=== PATIENT | female | born 1950 | race Caucasian/White ===

== ENCOUNTER → 2023-07-17 13:52 | Outpatient (REF) | payer MEDICARE, OTHER, SELFPAY | LOC: PAVMRI 13:52 | PROVIDERS: ATTENDING PHYSICIAN Physician Assistant; FAMILY PHYSICIAN Nurse Practitioner Adult Health | DX: I67.1 Cerebral aneurysm, nonruptured (principal) | CPT/HCPCS: 70546; A9585 ==

== ENCOUNTER → 2023-08-29 10:26 | Outpatient (REF) | payer MEDICARE, OTHER, SELFPAY | LOC: HWRAD 10:26 | PROVIDERS: ATTENDING PHYSICIAN Psychiatry & Neurology Neurology; FAMILY PHYSICIAN Nurse Practitioner Adult Health | DX: M81.0 Age-related osteoporosis without current pathological fracture (principal); M19.90 Unspecified osteoarthritis, unspecified site | CPT/HCPCS: 73560; 73590; 77080 ==

== ENCOUNTER → 2024-07-06 11:18 | Outpatient (REF) | payer MEDICARE, OTHER, SELFPAY | LOC: HWRAD 11:18 | PROVIDERS: ATTENDING PHYSICIAN Internal Medicine | DX: M79.605 Pain in left leg (principal) | CPT/HCPCS: 73590 ==

== ENCOUNTER 2024-07-09 17:28 | Emergency (ER) | payer MEDICARE, OTHER, SELFPAY ==
[2024-07-09 18:14] VITALS: BP 155/89
[2024-07-09 18:55] LABS: % Basophils 0.8 % (0-2); % Eosinophils 0.8 % (0-6); % Immature Granulocytes 0.2 % (0-0.5); % Lymphocytes 30.6 % (20.5-51.1); % Neutrophils 59.6 % (42.2-75.2); Absolute Basophils 0.1 10^3/uL (0-0.2); Absolute Eosinophils 0.1 10^3/uL (0-0.7); Absolute Lymphocytes 2.8 10^3/uL (1.2-3.4); Absolute Monocytes 0.7 10^3/uL (0.1-0.6); Absolute Neutrophils 5.4 10^3/uL (1.4-6.5); Hematocrit 38.7 % (37.0-47.0); Hemoglobin 12.9 g/dL (12.0-16.0); Mean Corp Hgb Conc. 33.3 g/dL (33.0-37.0); Mean Corpuscular Hgb 31.3 pg (27.0-31.0); Mean Corpuscular Volume 93.9 fL (81.0-99.0); Mean Platelet Volume 9.5 fL (7.4-10.4); Nucleated Red Blood Cells % 0 %; Platelet Count 192 10^3/uL (130-400); Red Blood Cell Count 4.12 10^6/uL (4.20-5.40); Red Cell Dist. Width 12.9 % (11.5-14.5)
[2024-07-09 19:13] LABS: ALT (SGPT) 19 U/L (0-35); AST (SGOT) 18 U/L (14-36); Albumin 4.4 g/dl (3.5-5.0); Alkaline Phosphatase 107 U/L (38-126); Blood Urea Nitrogen 22 mg/dl (7-17); Calcium 9.7 mg/dl (8.4-10.2); Carbon Dioxide 25 mmol/L (22-30); Chloride 103 mmol/L (98-107); Glucose 111 mg/dl (70-99); Potassium 3.5 mmol/L (3.5-5.1); Sodium 137 mmol/L (135-145); Total Bilirubin 0.7 mg/dl (0.2-1.3); Total Protein 7.5 g/dl (6.3-8.2); eGFR > 60.00
--- NOTE | 2024-07-09 21:34 | ED.GENMED ---
History of Present Illness
General
Chief Complaint: Skin Problem
Source: patient and family (Son)
Exam Limitations: none
Time Seen by Provider: 07/09/24 21:19
History of Present Illness
History of Present Illness:
This is a 74 year old female that comes in with son with c/o left leg pain. Son states that about 1.5 weeks ago no Saturday she started to c/o pain in te left leg. States that she always has pain in the right side since her stroke. States that Saturday
she went to the PCP for a shot and she told them about her leg hurting. States that Dr Henry ordered an X-ray. States that today he called the PCP as they had not heard anything and he was told to bring her to the ER for an US. Denies any fever,
chills, chest pain, SOB, abd pain, nausea, vomiting, diarrhea, headache, dizziness, urinary burning.
Past History
Past History
ED Past Medical History: CVA (with stents X 3 and coiling), HTN, Hypercholesterolemia, Other (Anemia, paralysis right leg, Intracranial bleed, Sleep apnea uses CPAP, Renal calculus) and Other (RSD right side with chronic pain.)
ED Past Surgical History: Appendectomy, Tonsilectomy and Other (Tracheostomy, gastrostomy , right and left lumpectomy)
Social History
Tobacco: Non-smoker
Alcohol: None
Drug: None
Personal:
Living: with family (2 son abd lives with one son)
Employment: Retired
Family History
Family History: Negative Diabetes or CAD
Review of Systems
Review of Systems
All Other Systems: ROS reviewed and negative except as documented in HPI and ROS
Constitutional: Reports no symptoms; Denies fever or chills
EENT: Reports no symptoms
Respiratory: Reports no symptoms; Denies cough or trouble breathing
Cardiac: Reports no symptoms; Denies chest pain
ABD/GI: Reports no symptoms; Denies abdominal pain, nausea, vomiting or diarrhea
: Reports no symptoms; Denies dysuria, frequency or urgency
Musculoskeletal: Reports other (Left leg pain)
Skin: Reports no symptoms
Neurological: Reports no symptoms; Denies dizzy or headache
Psychiatric: Reports no symptoms
Phy Exam
General Physical Exam
General Presentation: well appearing and no apparent distress
General age: appears stated age
General Skin: warm and dry
General Habitus: elderly
General Mental: alert
General Hydration: appears well hydrated
ENT Exam
ENT Exam: TM's normal, pharynx normal and neck supple
Eye Exam
Eye Exam: EOMI
Cardiovascular Exam
Cardiovascular Exam: regular rate/rhythm, no edema and normal peripheral pulses
Pulmonary Exam
Pulmonary Exam: lungs clear, no respiratory distress, no rales, chest non tender, no crackles, no rhonchi, no wheezing and no cough
Musculoskeletal Exam
Musculoskeletal Exam: full ROM, no edema and other (Negative for any swelling or redness noted of the left leg)
Skin Exam
Skin Exam: normal color, warm/dry, no rash and no petechia
Psychiatric Exam
Psychiatric Exam: normal mood/affect
Course
Orders/Labs/Results
Orders:
Orders
07/09/24 18:25
Venous Doppler Lwr Ext Left [US Periph Venous LOWER Ext LT] Urgent
Comment:
Reason For Exam: pain and swelling
07/09/24 18:44
CMP [Comprehensive Metabolic Panel] Urgent
Complete Blood Count/With Diff Urgent
Abnormal Lab Results
07/09/24
18:44
RBC 4.12 L 10^6/uL
(4.20-5.40)
MCH 31.3 H pg
(27.0-31.0)
Absolute Monos (auto) 0.7 H 10^3/uL
(0.1-0.6)
BUN 22 H mg/dl
(7-17)
Glucose 111 H mg/dl
(70-99)
07/09/24 18:44
07/09/24 18:44
Dehydration. Glucose nonfasting.
Vital Signs
Initial and Last Documented VS:
Initial Vital Signs
Temp Pulse Resp BP Pulse Ox
98.1 F 80 18 155/89 98
07/09/24 18:14 07/09/24 18:14 07/09/24 18:14 07/09/24 18:14 07/09/24 18:14
Last Documented Vital Signs
Temp Pulse Resp BP Pulse Ox
98.1 F 80 18 155/89 98
07/09/24 18:14 07/09/24 18:14 07/09/24 18:14 07/09/24 18:14 07/09/24 18:14
MDM/Problems Addressed
Differential Diagnosis Includes:
DVT. Neuropathy,
MDM/Problems Addressed:
This is a 74 year old female that comes in with c/o left leg pain. States that this started about 1.5 weeks ago on a Saturday. Patient saw PCP on Saturday and had an X-ray. Today patient was called and told to come to the ER for an US.
Will check labs and get Ultrasound left leg.
Back into see patient. Explained that her Ultrasound is negative. Questioned patient if she has ever use Gabapentin. States that this does not work for her. Will have patient use Extra stength Tylenol or Tylenol arthritis as directed. Patient to
follow up with the family doctor. Return with any concerns.
Chronic conditions affecting care:
NA
Acute Exacerbation and/or Progression of Chronic Illness:
NA
*Radiology
Radiology exam reviewed: radiology read reviewed (US-NO evidence of deep venous thrombosis of the left lower extremity. )
*Pulse Oximetry
Patient hypoxic: no
*EKG
Interpreted by ED Provider?: NA
Rate: EKG- N/A
*Neonatal Nurse Practitioner Interpretation
Rate: Neonatal Nurse Practitioner- N/A
*Critical Care Note
Total Time (30-74mins, 75-104mins- exclusive of procedures): Not Applicable
ED Attending Note
-
Portions of this chart may have been created with voice recognition software.� Occasional wrong word or��sound alike� substitutions may have occurred due to the inherent limitations of voice recognition software.
Discharge Plan
Departure
Patient Disposition: Home (Routine Discharge)
Date of Disposition: 07/09/24
Time of Disposition: 22:18
Patient with high blood pressure during this ER visit?: Yes
Condition: Good
Covid-19: Not Applicable
Discharge Problem:
Left leg pain
Instructions: BLOOD PRESSURE
Prescriptions:
No Action
ascorbic acid (vitamin C) [Vitamin C] 500 MG tablet
125 mg PO Q48H
acetaminophen [Tylenol 8 Hour] 650 MG tablet extended release
2 tab PO PRN PRN (Reason: pain)
calcium carbonate 600 MG tablet
1,200 mg PO .Q48
zinc 50 MG tablet
50 mg PO .Q48
Chew Q 100 MG tablet,chewable
100 mg PO .Q48
[id number]-[id number]-ast [krill oil] 1 EACH capsule
1 cap PO [id number]
mag citrate-potassium citrate 1 EACH capsule
125 mg PO .Q48
Natures Truth B-12 Energy
2 tab PO .Q48
Vitamin E (Dl,Tocopheryl Acet) [Vitamin E] 180 MG Capsule
180 mg PO .Q48
atorvastatin 40 MG tablet
40 mg PO DAILY
amlodipine 5 MG tablet
5 mg PO DAILY
losartan 25 MG tablet
25 mg PO DAILY
cholecalciferol (vitamin D3) [Vitamin D3] 25 MCG capsule
25 mcg PO Q48H
folic acid 0.8 MG capsule
0.8 mg PO DAILY
Psyllium Husk [Psyllium Fiber] 0.4 GM Capsule
0.4 gm PO DAILY
Activity Restrictions/Additional Instructions:
As discussed, your blood work shows that you are a little Dehydrated. Please increase your water intake to 8-8oz glasses daily. Your Ultrasound is negative for any blood clots. Please use Tylenol 1000mg every 6 hours for pain or you may also try
Tylenol arthritis for pain. Follow up with the family doctor for recheck. IF YOU HAVE ANY OTHER CONCERNS PLEASE RETURN TO THE EMERGENCY ROOM
Interventions
Interventions:
*Risk Screen - Suicide Last Done: 07/09/24 21:22
*General Assessment Last Done: 07/09/24 21:22
*Neglect/Abuse Screening Last Done: 07/09/24 21:22
ED- Fall Risk Assessment Last Done: 07/09/24 21:22
*ED COVID-19 Vaccine History Last Done: 07/09/24 18:14
ED-Skin Assessment Last Done: 07/09/24 21:22
Discharge Date and Time
Print Language: TUVALUAN
[2024-07-09 22:39] VITALS: BP 148/76
== END 2024-07-09 22:47 | disposition home or self-care (01) ==
LOC: EMR 17:28
PROVIDERS: Physician Assistant; EMERGENCY PHYSICIAN Student in an Organized Health Care Education/Training Program; FAMILY PHYSICIAN Nurse Practitioner Adult Health
DX: M79.605 Pain in left leg (principal); I10 Essential (primary) hypertension; E78.00 Pure hypercholesterolemia, unspecified; E86.0 Dehydration; G47.30 Sleep apnea, unspecified; Z86.73 Personal history of transient ischemic attack (TIA), and cerebral infarction without residual deficits; Z87.442 Personal history of urinary calculi; Z90.49 Acquired absence of other specified parts of digestive tract
CPT/HCPCS: 99284; 80053; 85025; 93971

== ENCOUNTER → 2024-07-15 14:36 | Outpatient (REF) | payer MEDICARE, OTHER, SELFPAY | LOC: HWWDC 14:36 | PROVIDERS: ATTENDING PHYSICIAN Family Medicine Geriatric Medicine; FAMILY PHYSICIAN Nurse Practitioner Adult Health | DX: Z12.31 Encounter for screening mammogram for malignant neoplasm of breast (principal) | CPT/HCPCS: 77063; 77067 ==

== ENCOUNTER → 2024-10-14 11:30 | Outpatient (REF) | payer MEDICARE, OTHER, SELFPAY | LOC: HWRAD 11:30 | PROVIDERS: ATTENDING PHYSICIAN Specialist; FAMILY PHYSICIAN Nurse Practitioner Adult Health | DX: N20.0 Calculus of kidney (principal) | CPT/HCPCS: 74018; 76775 ==

== ENCOUNTER → 2024-11-24 10:36 | Outpatient (REF) | payer MEDICARE, OTHER, SELFPAY ==
[2024-11-24 15:39] LABS: ALT (SGPT) 18 U/L (0-35); AST (SGOT) 18 U/L (14-36); Albumin 4.3 g/dl (3.5-5.0); Alkaline Phosphatase 87 U/L (38-126); Blood Urea Nitrogen 15 mg/dl (7-17); Calcium 9.9 mg/dl (8.4-10.2); Carbon Dioxide 25 mmol/L (22-30); Chloride 110 mmol/L (98-107); Glucose 105 mg/dl (70-99); HDL Cholesterol 65 mg/dl; LDL Cholesterol, Calculated 64 mg/dl; Potassium 4.5 mmol/L (3.5-5.1); Sodium 141 mmol/L (135-145); Total Bilirubin 0.6 mg/dl (0.2-1.3); Total Cholesterol 153 mg/dl (50-199); Total Protein 7.6 g/dl (6.3-8.2); Triglyceride 122 mg/dl (10-149); Very Low Density Lipoprotein 24 mg/dl (0-30); eGFR > 60.00
[2024-11-24 15:41] LABS: % Basophils 0.8 % (0-2); % Immature Granulocytes 0.2 % (0-0.5); % Lymphocytes 33.2 % (20.5-51.1); % Monocytes 8.1 % (1.7-9.3); % Neutrophils 56.7 % (42.2-75.2); Absolute Basophils 0.1 10^3/uL (0-0.2); Absolute Eosinophils 0.1 10^3/uL (0-0.7); Absolute Monocytes 0.5 10^3/uL (0.1-0.6); Absolute Neutrophils 3.4 10^3/uL (1.4-6.5); Hematocrit 38.6 % (37.0-47.0); Hemoglobin 12.7 g/dL (12.0-16.0); Mean Corp Hgb Conc. 32.9 g/dL (33.0-37.0); Mean Corpuscular Hgb 30.8 pg (27.0-31.0); Mean Corpuscular Volume 93.5 fL (81.0-99.0); Mean Platelet Volume 10.6 fL (7.4-10.4); Nucleated Red Blood Cells % 0 %; Platelet Count 187 10^3/uL (130-400); Red Blood Cell Count 4.13 10^6/uL (4.20-5.40); Red Cell Dist. Width 12.9 % (11.5-14.5)
[2024-11-24 15:55] LABS: Vitamin D, 25-OH*** 59.6 ng/mL (30-80)
[2024-11-24 16:09] LABS: TSH Reflex To Free T4 0.97 uIU/ml (0.47-4.68)
[2024-11-25 09:52] LABS: Glycohemoglobin (HgbA1c) 5.8 % (4.0-5.6)
== END ==
LOC: HWLAB 10:36
PROVIDERS: ATTENDING PHYSICIAN Nurse Practitioner Adult Health
DX: I61.9 Nontraumatic intracerebral hemorrhage, unspecified (principal); E78.2 Mixed hyperlipidemia; R73.03 Prediabetes; M81.0 Age-related osteoporosis without current pathological fracture
CPT/HCPCS: 36415; 80053; 80061; 82306; 83036; 84443; 85025

== ENCOUNTER 2025-01-21 06:14 | Day surgery (SDC) | payer MEDICARE, OTHER, SELFPAY | END 2025-01-21 09:21 | disposition home or self-care (01) | LOC: GI 06:14 | PROVIDERS: ATTENDING PHYSICIAN Internal Medicine Gastroenterology; FAMILY PHYSICIAN Nurse Practitioner Adult Health | DX: Z12.11 Encounter for screening for malignant neoplasm of colon (principal); K57.30 Diverticulosis of large intestine without perforation or abscess without bleeding; K64.8 Other hemorrhoids; Z86.0100 Personal history of colon polyps, unspecified; D12.0 Benign neoplasm of cecum | CPT/HCPCS: 45380; 88305 ==

== ENCOUNTER 2025-02-26 10:57 | Emergency (ER) | payer MEDICARE, OTHER, SELFPAY ==
[2025-02-26 10:58] VITALS: BP 157/73
[2025-02-26] MEDS: DILAUDID 0.5 MG IV (12:00)
--- NOTE | 2025-02-26 12:04 | ED.GENMED ---
Addendum entered and electronically signed by Young Quijano, 02/26/25 15:49:
Update CT report reviewed L2 compression fracture also mild diverticulitis reviewed with patient, granddaughter in the room will start on antibiotics in addition to pain meds
Addendum entered and electronically signed by Young Quijano DO 02/26/25 14:35:
Update Long conversation with son patient another son over the phone initial concern for radiation they have agreed to go ahead with a CT of the abdomen, rule out anything intra-abdominal patient looks comfortable I did send a prescription to her
pharmacy show degenerative follow-up with physiatry Ortho pain management
Original Note:
History of Present Illness
General
Chief Complaint: Back Pain
Source: patient and family
Exam Limitations: none
Time Seen by Provider: 02/26/25 11:06
Nursing documentation reviewed up to this point in time: agreed with
History of Present Illness
History of Present Illness:
75-year-old female presents with back pain onset a month ago saw her PCP had a urinalysis chiropractor saw a procurement agent, did get some relief from the chiropractor not much relief from steroids, she has chronic RSD on the right side from a prior
stroke in 2010 states this pain is different no bowel or bladder changes, no incontinence no trouble urinating no fevers, no falls tried to get MRI not available until April
Past History
Past History
ED Past Medical History: CVA (with stents X 3 and coiling), HTN, Hypercholesterolemia, Other (Anemia, paralysis right leg, Intracranial bleed, Sleep apnea uses CPAP, Renal calculus) and Other (RSD right side with chronic pain.)
ED Past Surgical History: Appendectomy, Tonsilectomy and Other (Tracheostomy, gastrostomy , right and left lumpectomy)
Social History
Tobacco: Non-smoker
Alcohol: None
Drug: None
Personal:
Living: with family (2 son abd lives with one son)
Employment: Retired
Family History
Family History: Negative Diabetes or CAD
Review of Systems
Review of Systems
All Other Systems: Not applicable
Constitutional: Denies fever or fatigue
EENT: Reports no symptoms
Respiratory: Reports no symptoms
Cardiac: Reports no symptoms
ABD/GI: Reports no symptoms
Musculoskeletal: Reports back pain
Neurological: Reports numbness (Numbness weakness on the right chronic)
Phy Exam
Physical Exam
Physical Exam:
Physical Exam
General: no apparent distress, not acutely ill
Neck: supple. no meningeal signs. normal psoterior pharynx
Heart: s1/s2 regular rate and rhythm, no murmur. equal radial pulses.
Lungs: no acute respiratory distress. clear bilaterally
Abdomen: normal bowel sounds. not tender. no CVAT
Neuro: alert and oriented. no focal neurological deficits
Skin: no rash
Psychiatric: well kept. interactive and cooperative
Extremities: no edema. no calf tenderness. negative homans. good distal pulses
Course
Orders/Labs/Results
Orders:
Orders
02/26/25 11:55
IV Insert/Care/Rem.- Treatment PRN
Urinalysis Reflex To Culture Urgent
02/26/25 11:56
Electrocardiogram (*1) Stat
Reason for Study: Abdominal Pain
EKG- Treatment ONCE
Lumbar Spine, 2 or 3 View [CR Lumbar Spine 2 Or 3 Views] Urgent
Comment:
Reason For Exam: pain
02/26/25 11:57
HYDROmorphone [Dilaudid] 0.5 mg IV NOW STA
02/26/25 12:02
Complete Blood Count/With Diff Urgent
Comprehensive Metabolic Panel Urgent
Lipase Urgent
Troponin I Urgent
Abnormal Lab Results
02/26/25
12:02
RBC 3.69 L 10^6/uL
(4.20-5.40)
Hgb 11.4 L g/dL
(12.0-16.0)
Hct 34.2 L %
(37.0-47.0)
Lymphocytes % 19.9 L %
(20.5-51.1)
BUN 27 H mg/dl
(7-17)
Glucose 119 H mg/dl
(70-99)
Alkaline Phosphatase 136 H U/L
(38-126)
02/26/25 12:02
02/26/25 12:02
Vital Signs
Initial and Last Documented VS:
Initial Vital Signs
Temp Pulse Resp BP Pulse Ox
98.2 F 67 18 157/73 99
02/26/25 10:58 02/26/25 10:58 02/26/25 10:58 02/26/25 10:58 02/26/25 10:58
Last Documented Vital Signs
Temp Pulse Resp BP Pulse Ox
98.2 F 68 18 157/73 91
02/26/25 10:58 02/26/25 13:06 02/26/25 13:06 02/26/25 10:58 02/26/25 13:05
MDM/Problems Addressed
Differential Diagnosis Includes:
Radicular pain UTI myeloma RSD
Chronic conditions affecting care:
Prior stroke RSD
Chronic conditions affecting care: Neurological disorder
Acute Exacerbation and/or Progression of Chronic Illness: Neurological disorder
*Radiology
Radiology exam reviewed: preliminary read by ED provider
*Pulse Oximetry
SaO2: 99
Oxygen Mode of Delivery: Room air
Patient hypoxic: no
*EKG
Interpreted by ED Provider?: Yes
Interpretation: normal
Comparison EKG: no comparison EKG present
Heart Rate: 64
Rate: normal
Rhythm: sinus
Ischemia: no ischemia
*Critical Care Note
Total Time (30-74mins, 75-104mins- exclusive of procedures): Not Applicable
Update Note
Update Note:
12:30 PM update discussed with son he does want a CAT scan due to the radiation, he would like to know what is going on, he would like an MRI today upper back, told him that we cannot typically get an MRI of her back for subacute pains, without an
indication she has had no fever no bowel or bladder changes, I will treat her pain, encouraged him to speak with his ordering physician or other outpatient MRI facilities, also will try to get him some names for pain management with how to help her
in the meantime
1:45 PM labs noted x-ray noted patient appears comfortable
ED Attending Note
-
Portions of this chart may have been created with voice recognition software.� Occasional wrong word or��sound alike� substitutions may have occurred due to the inherent limitations of voice recognition software.
Discharge Plan
Departure
Patient Disposition: Home (Routine Discharge)
Date of Disposition: 02/26/25
Time of Disposition: 13:43
Patient with high blood pressure during this ER visit?: No
Condition: Good
Discharge Problem:
Back pain
Instructions: Low Back Pain (DC), Radiculopathy (DC)
Prescriptions:
New
oxycodone 5 mg tablet
5 mg PO Q4H PRN (Reason: Pain) Qty: 20 0RF
No Action
ascorbic acid (vitamin C) [Vitamin C] 500 MG tablet
125 mg PO Q48H
acetaminophen [Tylenol 8 Hour] 650 MG tablet extended release
2 tab PO PRN PRN (Reason: pain)
calcium carbonate 600 MG tablet
1,200 mg PO .Q48
zinc 50 MG tablet
50 mg PO .Q48
Chew Q 100 MG tablet,chewable
100 mg PO .Q48
[id number]-6-rpk-fck-wyqtrjf-ast [krill oil] 1 EACH capsule
1 cap PO [id number]
mag citrate-potassium citrate 1 EACH capsule
125 mg PO .Q48
Natures [employer] B-12 Energy
2 tab PO .Q48
Vitamin E (Dl,Tocopheryl Acet) [Vitamin E] 180 MG Capsule
180 mg PO .Q48
atorvastatin 40 MG tablet
40 mg PO DAILY
amlodipine 5 MG tablet
5 mg PO DAILY
losartan 25 MG tablet
25 mg PO DAILY
cholecalciferol (vitamin D3) [Vitamin D3] 25 MCG capsule
25 mcg PO Q48H
folic acid 0.8 MG capsule
0.8 mg PO DAILY
Psyllium Husk [Psyllium Fiber] 0.4 GM Capsule
0.4 gm PO DAILY
Referrals:
Thea Turcios CRNP [Family Provider, General] - Next open appointment
Marvin Stinson DO [Non-Admitting Privileges, Orthopedics] - Next open appointment
Interventions
Interventions:
*Risk Screen - Suicide Last Done: 02/26/25 10:58
*General Assessment Last Done: 02/26/25 10:58
ED-Musculoskeletal Assessment Last Done: 02/26/25 13:04
Discharge Date and Time
Print Language: SWISS
[2025-02-26 12:08] VITALS: BMI 33.5
[2025-02-26 12:11] LABS: Hematocrit 34.2 % (37.0-47.0); Hemoglobin 11.4 g/dL (12.0-16.0); Mean Corp Hgb Conc. 33.3 g/dL (33.0-37.0); Mean Corpuscular Volume 92.7 fL (81.0-99.0); Nucleated Red Blood Cells % 0 %; Platelet Count 145 10^3/uL (130-400); Red Cell Dist. Width 13.0 % (11.5-14.5)
[2025-02-26 12:36] LABS: ALT (SGPT) 22 U/L (0-35); AST (SGOT) 18 U/L (14-36); Albumin 3.7 g/dl (3.5-5.0); Alkaline Phosphatase 136 U/L (38-126); Blood Urea Nitrogen 27 mg/dl (7-17); Calcium 9.8 mg/dl (8.4-10.2); Carbon Dioxide 30 mmol/L (22-30); Chloride 107 mmol/L (98-107); Estimated Creatinine Clearance 60 ml/min; Glucose 119 mg/dl (70-99); Lipase 129 U/L (23-300); Potassium 3.8 mmol/L (3.5-5.1); Sodium 139 mmol/L (135-145); Total Protein 6.8 g/dl (6.3-8.2); eGFR > 60.00
[2025-02-26 12:46] LABS: Troponin I < 0.012 ng/ml
[2025-02-26 14:00] VITALS: BP 131/70
--- NOTE | 2025-02-26 14:34 | ED.GENMED ---
History of Present Illness
General
Chief Complaint: Back Pain
Time Seen by Provider: 02/26/25 11:06
Past History
Past History
ED Past Medical History: CVA (with stents X 3 and coiling), HTN, Hypercholesterolemia, Other (Anemia, paralysis right leg, Intracranial bleed, Sleep apnea uses CPAP, Renal calculus) and Other (RSD right side with chronic pain.)
ED Past Surgical History: Appendectomy, Tonsilectomy and Other (Tracheostomy, gastrostomy , right and left lumpectomy)
Social History
Tobacco: Non-smoker
Alcohol: None
Drug: None
Personal:
Living: with family (2 son abd lives with one son)
Employment: Retired
Family History
Family History: Negative Diabetes or CAD
Course
Orders/Labs/Results
Orders:
Orders
02/26/25 11:55
IV Insert/Care/Rem.- Treatment PRN
Urinalysis Reflex To Culture Urgent
02/26/25 11:56
Electrocardiogram (*1) Stat
Reason for Study: Abdominal Pain
EKG- Treatment ONCE
Lumbar Spine, 2 or 3 View [CR Lumbar Spine 2 Or 3 Views] Urgent
Comment:
Reason For Exam: pain
02/26/25 11:57
HYDROmorphone [Dilaudid] 0.5 mg IV NOW STA
02/26/25 12:02
Complete Blood Count/With Diff Urgent
Comprehensive Metabolic Panel Urgent
Lipase Urgent
Troponin I Urgent
02/26/25 14:18
CT Abd/pelvis W Iv Cont Urgent
Comment:
Reason For Exam: abd pain
Abnormal Lab Results
02/26/25
12:02
RBC 3.69 L 10^6/uL
(4.20-5.40)
Hgb 11.4 L g/dL
(12.0-16.0)
Hct 34.2 L %
(37.0-47.0)
Lymphocytes % 19.9 L %
(20.5-51.1)
BUN 27 H mg/dl
(7-17)
Glucose 119 H mg/dl
(70-99)
Alkaline Phosphatase 136 H U/L
(38-126)
02/26/25 12:02
02/26/25 12:02
Vital Signs
Initial and Last Documented VS:
Initial Vital Signs
Temp Pulse Resp BP Pulse Ox
98.2 F 67 18 157/73 99
02/26/25 10:58 02/26/25 10:58 02/26/25 10:58 02/26/25 10:58 02/26/25 10:58
Last Documented Vital Signs
Temp Pulse Resp BP Pulse Ox
98.2 F 68 18 157/73 91
02/26/25 10:58 02/26/25 13:06 02/26/25 13:06 02/26/25 10:58 02/26/25 13:05
*Pulse Oximetry
SaO2: 91
Oxygen Mode of Delivery: Room air
Update Note
Update Note:
2:30 PM update
ED Attending Note
-
Portions of this chart may have been created with voice recognition software.� Occasional wrong word or��sound alike� substitutions may have occurred due to the inherent limitations of voice recognition software.
Discharge Plan
Departure
Patient Disposition: Home (Routine Discharge)
Date of Disposition: 02/26/25
Time of Disposition: 13:43
Patient with high blood pressure during this ER visit?: No
Condition: Good
Discharge Problem:
Back pain
Instructions: Low Back Pain (DC), Radiculopathy (DC)
Prescriptions:
New
oxycodone 5 mg tablet
5 mg PO Q4H PRN (Reason: Pain) Qty: 20 0RF
No Action
ascorbic acid (vitamin C) [Vitamin C] 500 MG tablet
125 mg PO Q48H
acetaminophen [Tylenol 8 Hour] 650 MG tablet extended release
2 tab PO PRN PRN (Reason: pain)
calcium carbonate 600 MG tablet
1,200 mg PO .Q48
zinc 50 MG tablet
50 mg PO .Q48
Chew Q 100 MG tablet,chewable
100 mg PO .Q48
ctbvn-ym-6-zze-qac-pucxkbb-ast [krill oil] 1 EACH capsule
1 cap PO [id number]
mag citrate-potassium citrate 1 EACH capsule
125 mg PO .Q48
[employer] B-12 Energy
2 tab PO .Q48
Vitamin E (Dl,Tocopheryl Acet) [Vitamin E] 180 MG Capsule
180 mg PO .Q48
atorvastatin 40 MG tablet
40 mg PO DAILY
amlodipine 5 MG tablet
5 mg PO DAILY
losartan 25 MG tablet
25 mg PO DAILY
cholecalciferol (vitamin D3) [Vitamin D3] 25 MCG capsule
25 mcg PO Q48H
folic acid 0.8 MG capsule
0.8 mg PO DAILY
Psyllium Husk [Psyllium Fiber] 0.4 GM Capsule
0.4 gm PO DAILY
Referrals:
Marvin Stinson DO [Non-Admitting Privileges, Orthopedics] - Next open appointment
Thea Turcios CRNP [Family Provider, General] - Next open appointment
Interventions
Interventions:
*Risk Screen - Suicide Last Done: 02/26/25 10:58
*General Assessment Last Done: 02/26/25 10:58
ED-Musculoskeletal Assessment Last Done: 02/26/25 13:04
Discharge Date and Time
Print Language: NEPALI
[2025-02-26 14:45] VITALS: BP 114/95
[2025-02-26 15:22] VITALS: BP 148/129
[2025-02-26 16:00] VITALS: BP 138/96
[2025-02-26] MEDS: AUGMENTIN 875 MG/125 MG 1 TABLET PO (16:04)
== END 2025-02-26 16:54 | disposition home or self-care (01) ==
LOC: EMR 10:57
PROVIDERS: EMERGENCY PHYSICIAN Emergency Medicine; FAMILY PHYSICIAN Nurse Practitioner Adult Health
DX: M54.9 Dorsalgia, unspecified (principal); M48.56XA Collapsed vertebra, not elsewhere classified, lumbar region, initial encounter for fracture; K57.32 Diverticulitis of large intestine without perforation or abscess without bleeding; G90.50 Complex regional pain syndrome I, unspecified; I69.398 Other sequelae of cerebral infarction; I10 Essential (primary) hypertension; E78.00 Pure hypercholesterolemia, unspecified; G47.30 Sleep apnea, unspecified; G83.11 Monoplegia of lower limb affecting right dominant side; Z95.5 Presence of coronary angioplasty implant and graft
CPT/HCPCS: 99284; 96374; 72100; 74177; 80053; 83690; 84484; 85025; 93005; Q9967